=== PATIENT | male | born 1955 | race Caucasian/White ===

== ENCOUNTER 2018-09-03 22:11 | Emergency (ER) | payer OTHER ==
[2018-09-03 22:15] VITALS: BP 146/97
--- NOTE | 2018-09-03 22:36 | EDPHY ---
H & P Stated Complaint: L hand splinter, swelling/redness Time Seen by Provider: 09/03/18 22:29 HPI/ROS: CHIEF COMPLAINT: Left hand splinter HISTORY OF PRESENT ILLNESS: The patient is a 63-year-old man who got a wound splinter in the palm of his hand 2 weeks ago work. He tried to dig it out but could not. He thought that it would come out on its own but it has since healed over. He has pain in the area. Minimal erythema. Normal surrounding tissue. No other injuries. Severity: Moderate Modifying factors: None REVIEW OF SYSTEMS: Constitutional: denies: chills, fever, recent illness, recent injury EENTM: denies: blurred vision, double vision, nose congestion Respiratory: denies: cough, shortness of breath Cardiac: denies: chest pain, irregular heart rate, lightheadedness, palpitations Gastrointestinal/Abdominal: denies: abdominal pain, diarrhea, nausea, vomiting, blood streaked stools Genitourinary: denies: dysuria, frequency, hematuria, pain Musculoskeletal: denies: joint pain, muscle pain Skin: denies: lesions, rash, jaundice, bruising Neurological: denies: headache, numbness, paresthesia, tingling, dizziness, weakness Hematologic/Lymphatic: denies: blood clots, easy bleeding, easy bruising Immunologic/allergic: denies: HIV/AIDS, transplant 10 systems reviewed and negative except as noted EXAM: GENERAL: Well-appearing, well-nourished and in no acute distress. HEAD: Atraumatic, normocephalic. EYES: Pupils equal round and reactive to light ENT: Moist mucous membranes. NECK: Normal range of motion, supple without lymphadenopathy or JVD. LUNGS: Breath sounds clear HEART: Regular rate and rhythm ABDOMEN: Soft, nontender, BACK: No CVA tenderness, no spinal tenderness, step-offs or deformities EXTREMITIES: Normal range of motion, no pitting or edema. No clubbing or cyanosis. NEUROLOGICAL: Cranial nerves II through XII grossly intact. Normal speech, normal gait. 5/5 strength, normal movement in all extremities, normal sensation , normal reflexes PSYCH: Normal mood, normal affect. SKIN: Small lump with minimal erythema to middle of palm left hand. Scab over top. Normal movement and range of motion. Normal sensation and pulses distally. Source: Patient Exam Limitations: No limitations - Personal History Current Tetanus/Diphtheria Vaccine: Yes - Medical/Surgical History Hx Asthma: No Hx Chronic Respiratory Disease: No Hx Diabetes: No Hx Cardiac Disease: No Hx Renal Disease: No Hx Cirrhosis: No Hx Alcoholism: No Hx HIV/AIDS: No Hx Splenectomy or Spleen Trauma: No Other PMH: GERD - Family History Significant Family History: No pertinent family hx - Social History Smoking Status: Never smoked Alcohol Use: Sober Drug Use: None Constitutional: Initial Vital Signs Temperature (C) 36.8 C 09/03/18 22:12 Heart Rate 81 09/03/18 22:12 Respiratory Rate 16 09/03/18 22:12 Blood Pressure 146/97 H 09/03/18 22:12 O2 Sat (%) 94 09/03/18 22:12 O2 Delivery Mode Room Air Allergies/Adverse Reactions: No Known Allergies Allergy (Unverified 09/03/18 22:15) Home Medications: Medication Instructions Recorded Omeprazole 09/03/18 Medical Decision Making Procedures: The patient's hand was injected with lidocaine surrounding the splinter. When anesthesia was obtained it was cleaned and on roofed. The splinter was easily removed. Small amount of purulence also. The wound was enlarged with a scalp all in all of the purulence expressed. I will leave the wound open and dressed with antibiotic ointment and sterile dressings. Patient tolerated the procedure well. ED Course/Re-evaluation: I was able to remove a 1.5 cm splinter from the patient's palm. Minimal exploration or trauma required. Patient tolerated this well. Will leave the wound open. Dressed with antibiotic ointment and sterile dressings. Discussed follow-up and indications for returning. Differential Diagnosis: Partial list of the Differential diagnosis considered include but were not limited to; splinter, abscess, cellulitis and although unlikely based on the history and physical exam, I also considered deep space infection, tendon injury , vascular injury, nerve injury, fracture, assault. I discussed these differential diagnoses and the plan with the patient as well as the usual and expected course. The patient understands that the diagnosis is provisional and that in medicine we are not always correct and that further workup is often warranted. Usual and customary warnings were given. All of the patient's questions were answered. The patient was instructed to return to the emergency department should the symptoms at all worsen or return, otherwise to followup with the physician as we discussed. Departure - Departure Disposition: Home, Routine, Self-Care Clinical Impression: Foreign body of hand, left Qualifiers: Encounter type: initial encounter Qualified Code(s): S60.552A - Superficial foreign body of left hand, initial encounter Condition: Fair Instructions: Wound Infection (ED) Referrals: Vini Chopra MD [Primary Care Provider] - 3-4 days, if not improved
== END 2018-09-03 23:03 | disposition home or self-care (01) ==
PROC: 0JCK0ZZ Extirpation of Matter from Left Hand Subcutaneous Tissue and Fascia, Open Approach (ICD-10-PCS; principal; 2018-09-03)
DX: S60.552A Superficial foreign body of left hand, initial encounter (principal); W26.8XXA Contact with other sharp object(s), not elsewhere classified, initial encounter; Y99.0 Civilian activity done for income or pay